=== PATIENT | female | born 1985 | race Caucasian/White ===

== ENCOUNTER 2019-12-11 17:05 | Emergency (ER) | payer OTHER, SELFPAY ==
--- NOTE | ~2019-12-11 | CT_ITS ---
EXAMINATION: CT abdomen pelvis w con INDICATION: Right flank pain TECHNIQUE: Computed tomographic images of the abdomen and pelvis were obtained after the administrati on of 100 cc of Omnipaque 350 intravenous contrast. The dose-length product (DLP) was 292.83 mGy-cm. Automated exposure control and iterative reconstruction technique were employed. COMPARISON: None available FINDINGS: The lung bases are clear. The heart size is normal. The liver, spleen, pancreas, gallbladde r, and adrenal glands are normal. The kidneys are normal. No pathologically enlarged abdominal or pel natalie lymph nodes are identified. There is no free intraperitoneal gas or evidence of bowel obstruction . The appendix is normal. A large volume of colonic stool is present. IMPRESSION: 1. No CT correlate for the patient's symptoms. Reviewed, dictated and finalized at location A.
[2019-12-11 18:04] VITALS: BP 149/104; PULSE 92; RESP 16; TEMP 37.1; O2SAT 97
[2019-12-11 18:33] LABS: Add Urine Microscopic? YES; Appearance Urine Clear (Clear); Bilirubin Urine Negative (Negative); Blood Urine Negative (Negative); Color Urine Yellow (Yellow); Glucose Urine UA Negative (Negative); Ketones Urine Negative (Negative); Leukocyte Esterase Ur Trace LEU/UL (Negative); Nitrate Urine Negative (Negative); Protein Urine Negative (Negative); Urobilinogen Urine 0.2 mg/dL (0.2-1.0); pH Urine 7.5 (5.0-8.0)
[2019-12-11 18:50] LABS: Amorphous Sediment Urine Few; Bacteria Urine 1+ /hpf; Mucus Urine Few /lpf; RBC Urine 0-2 /hpf (0-2); Squamous Epithelial Cell Urine Few /hpf (Few)
[2019-12-11 19:13] LABS: Pregnancy On Board Control Positive; Urine Pregnancy Test Negative
--- NOTE | 2019-12-11 19:19 | ED.BACK ---
HPI - Back Pain/Injury General Chief Complaint: Back Pain/Injury Stated Complaint: back/side pain Time Seen by Provider: 12/11/19 19:19 Source: patient Mode of arrival: ambulatory Limitations: no limitations History of Present Illness HPI Narrative: 34-year-old woman comes in today complaining of right flank pain for 1 week. Patient states that her pain is getting worse, worse with palpation, movement. She states that she has had some nausea today but no vomiting, diarrhea, dysuria, hematuria, discharge or lightheadedness. She denies previous similar symptoms. MD elicited complaint: other ( flank pain) Onset (ago): week(s) (1) Timing: intermittent Severity: moderate Quality: sharp Location: right flank Radiation: groin Exacerbating factors: movement and other ( palpation) Relieving factors: none Associated symptoms: abdominal pain Related Data Home Medications Medication Instructions Recorded Confirmed bupropion HCl [Wellbutrin XL] 150 mg PO QAM 12/11/19 12/11/19 Allergies Allergy/AdvReac Type Severity Reaction Status Date / Time No Known Allergies Allergy Verified 12/11/19 20:30 Review of Systems Constitutional: Constitutional: Denies chills and Denies fever(s) ENT: Denies dysphagia, Denies nasal congestion and Denies sore throat Cardiovascular: Cardiovascular: Denies chest pain and Denies radiating jaw, neck or arm pain Respiratory: Respiratory: Denies cough and Denies dyspnea Gastrointestinal: Gastrointestinal: Reports abdominal pain, Denies diarrhea, Reports nausea and Denies vomiting Genitourinary: Genitourinary: Denies hematuria, Denies nocturia, Reports dysuria, Reports flank pain and Denies urinary incontinence Musculoskeletal: Musculoskeletal: Denies arthralgias and Denies joint swelling Integumentary/Breasts: Skin/Breast: Denies pruritus, Denies erythema and Denies rash Neurologic: Denies vertigo, Denies dizziness and Denies syncope Hematologic/Lymphatic: Hematologic/Lymphatic: Denies easy bleeding and Denies easy bruising Allergic/Immunologic: Allergic/Immunologic: Denies lip swelling and Denies wheezing PMFSH Past Medical History Medical History Depression Surgical History Surgical History History of tubal ligation Social History Social History Smoking status: Never smoker Alcohol intake: never Substance use: never Living arrangements: with family Exam Const: General: healthy appearing Orientation/consciousness: patient oriented x3 Limitations: no limitations Other: moderate acute distress. HENMT: Head: normal to inspection General nose exam: Normal nares present Face and sinus: normal facial exam Mouth: Yes moist mucous membranes Throat: posterior oropharynx normal Eyes: Conjunctivae: conjunctivae normal Pupils: Equal, round and reactive pupils present EOM: EOMs intact bilaterally Resp: Effort & Inspection: normal respiratory effort, not labored, no retractions and no use of accessory muscles Auscultation: clear to auscultation bilaterally Cardio: Rate: regular rate Rhythm: regular rhythm Heart sounds: no murmurs GI: Auscultation: normal bowel sounds Other: Right flank is rather tender. She also has tenderness that extends to the right upper quadrant and down to the right lower quadrant. There is no guarding or rigidity. : General: Yes CVA tenderness on the right Skin: General skin exam: normal color, no jaundice and no pallor Rashes: no rashes Neuro: General: patient oriented x3, moves all extremities, no focal motor deficits and CN's II-XI intact bilaterally Speech: normal speech Gait exam (Neuro): Normal gait present Extrem: General: normal to inspection and no clubbing, cyanosis or edema Psych: Appearance: grossly normal and well kempt Mental Status: mental status grossl
[2019-12-11 19:46] LABS: Basophils Absolute Auto 0.05 K/mm3 (0.00-0.10); Basophils Percent Auto 0.6 % (0.0-1.0); Eosinophils Absolute Auto 0.27 K/mm3 (0.02-0.50); Immature Granulocyte Absolute 0.04 K/mm3 (0.00-0.00); Immature Granulocyte Percent A 0.4 % (0.0-0.0); Lymphocytes Absolute Auto 1.93 K/mm3 (1.10-4.50); Lymphocytes Percent Auto 21.5 % (18.0-42.0); Mean Corpuscular HGB Conc 32.4 g/dL (32.0-36.0); Mean Corpuscular Hemoglobin 29.9 pg (27.0-31.0); Mean Corpuscular Volume 92.3 fL (78.0-102.0); Mean Platelet Volume 9.8 fl (9.2-11.8); Monocytes Absolute Auto 0.53 K/mm3 (0.10-0.90); Monocytes Percent Auto 5.9 % (2.0-11.0); Neutrophils Absolute Auto 6.2 K/mm3 (1.7-7.2); Neutrophils Percent Auto 68.6 % (50.0-70.0); Platelet Count Result 316 K/mm3 (150-420); Red Blood Count 4.01 M/mm3 (4.20-5.40); Red Cell Distribution Width 13.2 % (11.6-14.4)
[2019-12-11 19:55] LABS: Lipase 108 U/L (73-393)
[2019-12-11 20:04] LABS: Lactic Acid Reflex 0.6 mmol/L (0.4-2.0)
[2019-12-11 20:10] LABS: CRP < 0.2 mg/dL (0.0-0.9)
[2019-12-11 20:29] LABS: Albumin Level 4.3 g/dL (3.4-5.0); Alkaline Phosphatase 64 U/L (46-116); Anion Gap 10 mmol/L (8-16); Aspartate Amino Transferase 17 U/L (15-37); Bilirubin,Total 0.3 mg/dL (0.00-1.00); Blood Urea Nitrogen 16 mg/dL (7-18); Calcium 8.9 mg/dL (8.5-10.1); Carbon Dioxide 24 mmol/L (21-32); Chloride 104 mmol/L (98-108); Estimated CRCL calculation 72 ml/min; Estimated Glomerular Filt Rate > 60; Glucose 86 mg/dL (70-99); Osmolality Calculated 286 mOsm/kg (285-295); Potassium 3.7 mmol/L (3.5-5.1); Sodium 138 mmol/L (136-145); Total Protein 7.3 g/dL (6.4-8.2)
[2019-12-11 20:38] LABS: Alanine Aminotransferase 16 U/L (14-59)
[2019-12-11 20:45] VITALS: BP 143/93; PULSE 78; RESP 16; O2SAT 98
[2019-12-11] MEDS: MORPHINE SULFATE (*CRX) 4 MG/ML INJ IV PUSH (20:50)
[2019-12-11] MEDS: ONDANSETRON INJ 4 MG/2 ML VIAL IV PUSH (20:51)
[2019-12-11 22:06] VITALS: BP 138/74; PULSE 68; RESP 16; O2SAT 98
--- NOTE | 2019-12-11 22:06 | PC.NURSE ---
ERP ordered Levaquin 750 mg PO, per medication machine only Levaquin 500 mg PO available, patient was given Levaquin 500 mg PO x1. ERP aware
== END 2019-12-11 22:07 | disposition home or self-care (01) ==
PROVIDERS: Emergency Provider Emergency Medicine
DX: R10.9 Unspecified abdominal pain (principal)
CPT/HCPCS: 36415; 74177; 80053; 81001; 81025; 83605; 83690; 85025; 86140; 87040; 87077; 87086; 87088; 96374; 96375; 99284; A9270; J2270; J2405; Q9965

== ENCOUNTER 2022-02-08 09:48 | Emergency (ER) | payer OTHER, SELFPAY ==
[2022-02-08] VITALS (11 sets, daily range): BP systolic 133–148; BP diastolic 80–95; PULSE 94–108; RESP 15–24; TEMP 36.8; O2SAT 98–100
--- NOTE | ~2022-02-08 | CT_ITS ---
EXAMINATION: CTA chest PE protocol DATE: 02/08/2022 11:09 ORGANIC PREPARATION TECHNICIAN INDICATION: Hemoptysis. Shortness of breath and cough. TECHNIQUE: Computed tomographic angiography (CTA) of the chest was performed with 100 mL Omnipaque-35 0 intravenous contrast. The dose-length product was 221.44 mGy-cm. Maximum intensity projection 3D-re constructions of the aorta and other arteries were constructed by the technologist on a separate work station. Automated exposure control and iterative reconstruction technique were employed. COMPARISON: None. FINDINGS: The study is technically adequate without evidence for pulmonary embolism. Heart size lashell l. No significant pleural or pericardial effusion. No thoracic lymphadenopathy. The upper abdomen is unremarkable. No focal airspace consolidation. There is a calcified granuloma of the left upper lobe. No endobronchial lesions. No pneumothorax. No suspicious pulmonary nodules or masses. No acute osseo us abnormality. No focal lytic or blastic lesions. IMPRESSION: 1. No acute cardiopulmonary disease. No evidence for pulmonary embolism. Reviewed, dictated and finalized at location B. NIC PREPARATION TECHNICIAN
--- NOTE | 2022-02-08 09:56 | ECG_ITS ---
Measurements Intervals [place] Rate: 92 P: 62 NC: 134 QRS: 53 QRSD: 92 T: 59 QT: 345 QTc: 427 Interpretive Statements SINUS RHYTHM NONSPECIFIC T-WAVE ABNORMALITY- ANTERIOR LEADS BASELINE ARTIFACT- I, II, III, AVR, AVL, AVF, V4 BORDERLINE ECG NO PREVIOUS ECG AVAILABLE FOR COMPARISON Electronically Signed On 02-08-2022 14:15:25 HOME MISSION WORKER by Fabricio Flores D.O.
--- NOTE | 2022-02-08 09:57 | ED.SOB ---
HPI - SOB/Dyspnea General Chief Complaint: Upper Respiratory Infection Stated Complaint: Coughing up blood Time Seen by Provider: 02/08/22 09:55 History of Present Illness HPI Narrative: Pt presents after episode of coughing up blood and mucous with some clots. Pt has has history of asthma and had covid awhile back (tested negative at work today) and has been somewhat SOB since. Pt denies leg pain or fever. Pt denies CP. 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 Related Data Home Medications Medication Instructions Recorded Confirmed albuterol sulfate 90 mcg/actuation 2 puff inhalation PRN PRN Wheezing 02/08/22 02/08/22 aerosol inhaler fluticasone 250 mcg-salmeterol 50 2 inh inhalation PRN PRN Cough 02/08/22 02/08/22 mcg/dose blistr powdr for inhalation (Wixela Inhub) hydroxyzine pamoate 25 mg capsule 25 mg PO TID 02/08/22 02/08/22 lamotrigine 200 mg tablet 250 mg PO DAILY 02/08/22 02/08/22 lisdexamfetamine 50 mg capsule 50 mg PO DAILY 02/08/22 02/08/22 (Vyvanse) Allergies Allergy/AdvReac Type Severity Reaction Status Date / Time No Known Allergies Allergy Verified 02/08/22 10:10 Review of Systems Review of Systems: All systems reviewed & are unremarkable except as noted in HPI and below PMFSH Past Medical History Medical History (Updated 02/08/22 @ 11:25 by Alana Caraballo III, DO) Depression Surgical History Surgical History History of tubal ligation Social History Social History Smoking status: Never smoker Alcohol intake: never Substance use: never Exam Const: General: healthy appearing Nutritional Appearance: well nourished Orientation/consciousness: patient oriented x3 Limitations: no limitations Eyes: EOM: EOMs intact bilaterally Chest: Chest palpation & inspection: normal inspection of the chest Resp: Effort & Inspection: normal respiratory effort Auscultation: clear to auscultation bilaterally Cardio: Rate: regular rate Rhythm: regular rhythm GI: GI Palp: Yes Soft to palpation Auscultation: normal bowel sounds Skin: General skin exam: normal color Rashes: no rashes Neuro: General: patient oriented x3 Speech: normal speech Extrem: General: normal to inspection, no clubbing, cyanosis or edema and no pedal edema Psych: Mental Status: mental status grossly normal Affect: normal affect Attitude: cooperative Course Vital Signs Vital signs: Vital Signs Oxygen Delivery Room Air 02/08/22 09:51 Temperature 98.3 F 02/08/22 11:30 Pulse Rate 96 02/08/22 11:20 Respiratory Rate 18 02/08/22 11:30 Blood Pressure 136/80 02/08/22 11:20 Pulse Oximetry 98 02/08/22 11:30 Oxygen Delivery Room Air 02/08/22 11:30 MDM - SOB/Dyspnea Lab Data Result diagrams: 02/08/22 10:12 02/08/22 10:12 Labs: Lab Results 02/08/22 02/08/22 02/08/22 Range/Units 10:12 10:12 10:12 WBC 4.1 L (4.8-10.8) K/mm3 RBC 4.05 L (4.20-5.40) M/mm3 Hgb 12.2 (12.0-15.0) g/dL Hct 35.6 (35.0-49.0) % MCV 87.9 (78.0-102.0) fL MCH 30.1 (27.0-31.0) pg MCHC 34.3 (32.0-36.0) g/dL RDW 12.6 (11.6-14.4) % Plt Count 272 (150-420) K/mm3 MPV 9.5 (9.2-11.8) fl Immature Gran % (Auto) 0.2 H (0.0-0.0) % Neut % (Auto) 70.9 H (50.0-70.0) % Lymph % (Auto) 16.5 L (18.0-42.0) % Roberts % (Auto) 9.9 (2.0-11.0) % Eos % (Auto) 1.5 (1.0-6.0) % Baso % (Auto) 1.0 (0.0-1.0) % Lymph # (Auto) 0.67 L (1.10-4.50) K/mm3 Roberts # (Auto) 0.40 (0.10-0.90) K/mm3 Eos # (Auto) 0.06 (0.02-0.50) K/mm3 Baso # (Auto) 0.04 (0.00-0.10) K/mm3 Abs Immat Gran (auto) 0.01 H (0.00-0.00) K/mm3 Absolute Neuts (auto) 2.9 (1.7-7.2) K/mm3 Absolute Nucleated RBC 0.00 (0.00-0.00) K/mm3 Nucleated RBC % 0.0 (0-0.0) % PT 11.2 (9.50-12.10) Seconds INR 1.0 APTT 2
[2022-02-08 10:16] LABS: Basophils Absolute Auto 0.04 K/mm3 (0.00-0.10); Eosinophils Absolute Auto 0.06 K/mm3 (0.02-0.50); Eosinophils Percent Auto 1.5 % (1.0-6.0); Hematocrit 35.6 % (35.0-49.0); Hemoglobin 12.2 g/dL (12.0-15.0); Immature Granulocyte Absolute 0.01 K/mm3 (0.00-0.00); Immature Granulocyte Percent A 0.2 % (0.0-0.0); Lymphocytes Absolute Auto 0.67 K/mm3 (1.10-4.50); Lymphocytes Percent Auto 16.5 % (18.0-42.0); Mean Corpuscular HGB Conc 34.3 g/dL (32.0-36.0); Mean Corpuscular Hemoglobin 30.1 pg (27.0-31.0); Mean Corpuscular Volume 87.9 fL (78.0-102.0); Mean Platelet Volume 9.5 fl (9.2-11.8); Monocytes Percent Auto 9.9 % (2.0-11.0); Neutrophils Absolute Auto 2.9 K/mm3 (1.7-7.2); Neutrophils Percent Auto 70.9 % (50.0-70.0); Platelet Count Result 272 K/mm3 (150-420); Red Blood Count 4.05 M/mm3 (4.20-5.40); Red Cell Distribution Width 12.6 % (11.6-14.4); White Blood Count 4.1 K/mm3 (4.8-10.8)
[2022-02-08 10:31] LABS: D Dimer 0.43 mg/L (0.19-0.50); Partial Thromboplastin Time 29.2 SEC (23.90-30.70); Prothrombin Time 11.2 Seconds (9.50-12.10)
[2022-02-08] MEDS: KETOROLAC 15 MG/ML VIAL (*BKC) IV PUSH (10:33)
--- NOTE | 2022-02-08 10:39 | PC.NURSE ---
PT REQUESTED SOMETHING FOR HER RIB PAIN. MEDICATION ADMINISTERED ORDERED. PT IS AWAITING RESULTS AT THIS TIME. BROTHER AT BEDSIDE. WILL CONTINUE TO MONITOR.
[2022-02-08 10:40] LABS: Albumin Level 4.1 g/dL (3.4-5.0); Alkaline Phosphatase 55 U/L (46-116); Anion Gap 13 mmol/L (8-16); Aspartate Amino Transferase 11 U/L (15-37); Bilirubin,Total 0.4 mg/dL (0.00-1.00); Blood Urea Nitrogen 10 mg/dL (7-18); Calcium 8.8 mg/dL (8.5-10.1); Carbon Dioxide 23 mmol/L (21-32); Chloride 103 mmol/L (98-108); Estimated CRCL calculation 74 ml/min; Estimated Glomerular Filt Rate > 60; Glucose 89 mg/dL (70-99); NT Pro B Type Natriuretic Pept 50 pg/mL (0-125); Osmolality Calculated 286 mOsm/kg (285-295); Potassium 3.2 mmol/L (3.5-5.1); Sodium 139 mmol/L (136-145); Total Protein 7.7 g/dL (6.4-8.2)
[2022-02-08 11:31] LABS: Alanine Aminotransferase 14 U/L (14-59)
== END 2022-02-08 11:30 | disposition home or self-care (01) ==
PROVIDERS: Emergency Provider Emergency Medicine
DX: R04.2 Hemoptysis (principal); J40 Bronchitis, not specified as acute or chronic
CPT/HCPCS: 36415; 71275; 80053; 83880; 85025; 85380; 85610; 85730; 93005; 96374; 99284; J1885; Q9967

== ENCOUNTER 2024-04-19 17:55 | Emergency (ER) | payer OTHER, MEDICAID, SELFPAY ==
--- NOTE | ~2024-04-19 | CT_ITS ---
EXAMINATION: CT abdomen pelvis w con DATE: 04/19/2024 21:19 INDICATION: Right upper quadrant abdominal pain. TECHNIQUE: Computed tomography (CT) of the abdomen and pelvis was performed with 100 mL Omnipaque 350 intravenous contrast. Automated exposure control and iterative reconstruction technique were employe d. The dose-length product was 747.97 mGy-cm. COMPARISON: CT abdomen and pelvis 12/11/2019 FINDINGS: The visualized portions of lung bases demonstrate minimal atelectasis. No pleural effusion. The heart size is normal. No pericardial effusion. The liver, gallbladder, spleen, pancreas, and adr enal glands are normal. There is cortical thinning of the kidneys. There is a 7 mm cyst in right kidn ey. The left periuterine veins and left ovarian vein are prominent, consistent with pelvic venous ins ufficiency. There are no dilated loops of bowel. The appendix is normal. There are no pathologically enlarged lymph nodes. There is no free intraperitoneal fluid. There is mild lumbar spondylosis. IMPRESSION: 1. Pelvic venous insufficiency. Reviewed, dictated and finalized at location A. OFF MILL TENDER
[2024-04-19 17:55] VITALS: BP 132/96; PULSE 85; RESP 16; O2SAT 99
--- OUTSIDE RECORDS SUMMARY | 2024-04-19 17:59 | XMS_ITS | Continuity of Care Document ---
Author Organization [facility] Address [address] [place] [address] Phone Care Team Providers Care Rug Weaver Name Role Phone Unavailable Unavailable Unavailable Advance Directives Directive Yes / No Effective Date File Name No Information Encounters Encounter Description Practice Location Reason(s) For Visit Diagnoses Date Provider Providers Copied on Encounter [facility], [address] [place], [place], [place], [id number], tel:[phone] [facility] No Information No Information Referring Provider: MORENITA BRIGGS, [address] [place] [address] [address], [place], [address]. tel:[phone] Family History Family Member Type Diagnosis Age At Onset No Information Payers Payer name Insurance type Covered alliance party ID Authoriza tion(s) No Information Social History Type Description Quantity Date Captured Comments Sex Female Smoking Status No Information Chief Complaint And Reason For Visit No Information History Of Present Illness Encounter Date Complaint History Of Prese nt Illness No Information Instructions Date Instruction Additional Infor mation No Information Assessments Type Assessment Date No Information
--- OUTSIDE RECORDS SUMMARY | 2024-04-19 17:59 | XMS_ITS | Clinical Summary ---
Author Organization [facility] Address [address] [place] [address]. [place], [place] [id number] [place] [id number] Care Team Providers Care Forge Operator Name Role Phone Jess Moya Primary Care Provider Allergies No known active allergies Medications lisdexamfetami ne (VYVANSE) 50 MG capsule Take 50 mg by mouth every morning. Active ADVAIR DISKUS 250-50 MCG/ACT inhaler INHALE 1 DOSE BY MOUTH TWICE DAILY (AM AND PM) - APPROXIMATELY 12 HOURS APART 2 Active clonazePAM 0.5 MG tablet 2 Active albuterol sulfate HFA 108 (90 Base) MCG/ACT inhaler 2 puffs. 2 Active DULoxetine (CYMBALTA) 20 MG capsule Take 1 capsule (20 mg total) by mouth daily. 3 Active Active Problems No known active problems Family History Medical History Relation Comments COPD Father Arthritis Mother Thyroid Disease Mother Relation Status Comments Father Alive Mother Social History Tobacco Use Types Packs/Day Years Used Date Smoking Tobacco: Former Cigarettes Smokeless Tobacco: Never Tobacco Cessation:Counseling Given: Not Answered Alcohol Use Standard Drinks/Week Comments Never 0 (1 standard drink = 0.6 oz pur e alcohol) Comments No Sex and Gender Information Value Date Recorded Sex Assigned at Not on file Legal Sex Female 2:40 PM CDT Gender Identity Not on file Sexual Orientation Not on file Last Filed Vital Signs Vital Sign Reading Time Taken Comments Blood Pressure 126/76 12/23/2022 7:30 PM CDT Pulse 101 12/23/2022 5:07 PM CDT Temperature 36.3 ??C (97.4 ??F) 12/23/2022 5:07 PM CD T Respiratory Rate 20 12/23/2022 5:07 PM CDT Oxygen Saturation 99% 12/23/2022 7:30 PM CDT Inhaled Oxygen Concentration - - Weight 56.7 kg (125 lb) 12/23/2022 5:07 PM CDT Height 160 cm (5' 3 ) 12/23/2022 5:07 PM CDT Body Mass Index 22.14 12/23/2022 5:07 PM CDT Plan of Treatment Health Maintenance Due Date Last Done Comments Cervical Cancer Screening Pa p Smear (Age 30 to 64) Every 3 Years 1985 Annual Physical 01/26/1988 Hepatitis C 2003 DTaP, Tdap and Td Vaccines ( 1 - Tdap) 01/26/2004 Hepatitis B Vaccines (1 of 3 - 19+ 3-dose series) 01/26/2004 Cervical Cancer Screening Pa p with HPV Testing (Age 30 to 64) Every 5 Years 2015 Cervical Cancer Screening with HPV 2015 COVID-19 Vaccine (2023-2 5 season) 2023 Influenza Adult (#1) 2023 HPV Vaccines Aged Out No longer eligi ble based on patient's age to complete this topic Meningococcal B Vaccine Aged Out No l onger eligible based on patient's age to complete this topic Meningococcal Vaccine Aged Out No isi angel eligible based on patient's age to complete this topic Pneumococcal Vaccine: Pediat rics (0 to 5 Years) and At-Risk Patients (6 to 64 Years) Aged Out No longer eligible b ased on patient's age to complete this topic RSV Immunizations Under 20 Months Aged Out No longer eligible based on patient's age to complete this topic Insurance [employer]ET[employer] Care Teams Forge Operator Relationship Specialty Start Date End Date Jess Moya PA [address] [place] [address] PCP - General PHYSICIAN COMMUNICATION AND OUTREACH MANAGER 09/14/21
--- OUTSIDE RECORDS SUMMARY | 2024-04-19 17:59 | XMS_ITS | Continuity of Care Document ---
Author Organization [facility] Address [address] [place] [address] Phone Care Team Providers Care Municipal Court Judge Name Role Phone LUISA King Angela Unavailable Jasmin vailable Allergies, Adverse Reactions, Alerts Substance Reaction Status Criticality No Known allergies Medications Medication Instructions Dosage Effective Dates (start - stop) Status Comments Claritin 10 mg Tab take 1 tablet (10MG) by oral route every day 10 MG - Active Celexa 20 mg Tab take 1 tablet (20MG) by oral route every day 20 MG - Active ibuprofen 800 mg Tab take 1 tablet (800M G) by oral route 3 times every day with food as needed 800 MG - Active Procedures Procedure Date Comprehensive community support services , per 15 minutes OFFICE/OUTPATIENT VISIT, EST COLLECTION OF VENOUS BLOOD BY VENIPUNCTU RE OFFICE/OUTPATIENT VISIT, EST Disease management program; initial assessment and initiation of the program OFFICE/OUTPATIENT VISIT, [facility] Limit oral eval problem focused 011 Periapical first film Extraction erupted tooth or exposed root Limit oral eval problem focused 011 Periapical first film Periapical ea add Extraction erupted tooth or exposed root Advance Directives Directive Yes / No Effective Date File Name No Information Encounters Encounter Description Practice Location Reason(s) For Visit Diagnoses Date Provider Providers Copied on Encounter [facility], [address], [place], [place], [id number] , tel: [phone] [facility] No Information [address] Laurie. [address], [place], [place], [address], . [phone] [facility], [address], [place], [place], [address] , tel: [phone] [facility] No Information 2 No Information OFFICE/OUTPA TIENT VISIT, EST [facility], [address], [place], [place], [address] , tel: [phone] [facility] Thyroid (chief complaint) Other specified disorders of thyroidGeneral ized anxiety disorderOther specified disorders of thyroidGeneral ized anxiety disorderPostna eva dripSpecial screening for other specified conditions 2 [address] Laurie. [address], [place], [place], [address], . tel:[phone] OFFICE/OUTPA TIENT VISIT, EST [facility], [address], [place], [place], [address] , [place] tel: [phone] [facility] anxiety (chief complaint)hy perthyroidis m (chief complaint) Other specified disorders of thyroidToxic effect of tobaccoGeneral ized anxiety disorderGenera lized anxiety disorder 1 Sch[address] Laurie. [address], [place], [place], [address], [place]. tel:[phone] [facility], [address], [place], [place], [address] , [place] tel: [phone] [facility] educational (chief complaint) Counseling NOS (Hlth, Education, Advice, Instr) 1 Management Case. [address], [place], [place], [address], . tel:[phone] OFFICE/OUTPA TIENT VISIT, NEW [facility], [address], [place], [place], [address] , tel: [phone] [facility] Follow Up-Elevated BP per [facility] (chief complaint) Other specified disorders of thyroidToxic effect of tobaccoOther specified disorders of thyroidElevate d blood pressure reading without diagnosis of hypertension 1 Aurora Sullivan. [address], [place], [place], [address], . tel:[phone] [facility], [address], [place], [place], [address] , tel: [phone] [facility] No Information 1 Carissa John. [address], [place], [place], [address], [place]. tel:[phone] [facility], [address], [place], [place], [address] , tel: [phone] [facility] No Information 1 Carissa John. [address], [place], [place], [address], . tel:[phone] Family History Family Member Type Diagnosis Age At Onset Paternal grandfather Problem (finding) Maternal history of diabetes mellitus Paternal grandfather Problem (finding) stroke Paternal uncle Problem (finding) malignant neoplasm of bone Problem (finding) Family history of Autoi mmune D/Os Paternal grandmother Problem (finding) breast cancer Brother Problem (finding) Panic D/O Paternal grandmother Problem (finding) Anxiety Payers Payer name Insurance type Covered libertarian ID Authoriza tion(s) No Information Social History Type Description Quantity Date Captured Comments Sex Female Smoking Status No Information Chief Complaint And Reason For Visit No Information Reason For Referral Reason For Referral No Information Plan Of Treatment Date Type Action Status Goal BMP fasting. Due on 012 due Goal Urinalysis. Due on 12 due Goal Lipid Panel. Due on 012 due Future Order: Lab Order THYROID PANEL ([id number]), Appointment on: , Collected on: , Sent on: Sent Future Order: Lab Order THYROID PANEL ([id number]), Appointment on: , Sent on: Sent Future Order: Lab Order THYROGLO BULIN ANTIBODIES ([id number]), Appointment on: , Sent on: Sent Future Order: Lab Order CBC (H/H , RBC, INDICES, WBC, PLT) ([id number]), Appointment on: , Collected on: , Sent on: Sent Future Order: Lab Order COMPREHE NSIVE METABOLIC PANEL W/EGFR ([id number]), Appointment on: , Collected on: , Sent on: Sent Future Order: Lab Order HEPATITI S B SURFACE ANTIGEN W/ CONFIRMATION ([id number]), Appointment on: , Collected on: , Sent on: Sent Future Order: Lab Order HEPATITI S C ANTIBODY ([id number]), Appointment on: , Collected on: , Sent on: Sent Future Order: Lab Order HIV AB, HIV 1/2, EIA, WITH REFLEXES ([id number]), Appointment on: , Collected on: , Sent on: Sent Future Order: Lab Order LIPID PA KRISTAN ([id number]), Appointment on: , Collected on: , Sent on: Sent Future Order: Lab Order T4, FREE ([id number]), Appointment on: , Collected on: , Sent on: Sent Future Order: Lab Order TSH, 3RD GENERATION ([id number]), Appointment on: , Collected on: , Sent on: Sent Future Order: Lab Order HCG, QL, URINE ([id number]), Appointment on: , Sent on: Sent History Of Present Illness Encounter Date Complaint History Of Prese nt Illness No Information Functional Status Date Functional Assessmen t No Information Instructions Date Instruction Additional Infor mation No Information Assessments Type Assessment Date No Information Patient Care Teams Name Effective Dates (start - stop) Status Members No Information
[2024-04-19 18:33] VITALS: BP 153/100; PULSE 102; RESP 20; TEMP 36.9; O2SAT 97
--- NOTE | 2024-04-19 18:45 | PC.NURSE ---
ERP aware of pt's high bp. No new orders .
--- NOTE | 2024-04-19 18:47 | ED_ITS ---
HPI - Abdominal Pain General Chief Complaint: Abdominal Pain Stated Complaint: abdominal pain Time Seen by Provider: 04/19/24 18:47 Source: patient Mode of arrival: ambulatory Limitations: no limitations History of Present Illness HPI narrative: Patient is a 39-year-old female with upper epigastric abdominal pain for the past few days. No nausea vomiting or diarrhea. No bleeding. No hematemesis or hematochezia. No melena. MD elicited complaint: abdominal pain Pertinent past history: other ( None) Onset (ago): day(s) (3) Pain Consistency: constant Location: epigastric Severity: moderate Pain scale (0-10): 5 Quality: cramping and sharp Radiation: back Migration to: no migration Exacerbating factors: nothing Relieving factors: nothing Context: confirms other ( patient has increasing epigastric abdominal pain which radiates to the back) Associated symptoms: denies other symptoms Related Data Home Medications ?Medication ?Instructions ?Recorded ?Confirmed ?Last Taken ?Type albuterol sulfate 90 mcg/actuation 2 puff inhalation PRN PRN Wheezing 02/08/22 02/08/22 Unknown History aerosol inhaler fluticasone 250 mcg-salmeterol 50 2 inh inhalation PRN PRN Cough 02/08/22 02/08/22 Unknown History mcg/dose blistr powdr for inhalation (Wixela Inhub) hydroxyzine pamoate 25 mg capsule 25 mg PO TID 02/08/22 02/08/22 Unknown History lamotrigine 200 mg tablet 250 mg PO DAILY 02/08/22 02/08/22 Unknown History lisdexamfetamine 50 mg capsule 50 mg PO DAILY 02/08/22 02/08/22 Unknown History (Vyvanse) Allergies Allergy/AdvReac Type Severity Reaction Status Date / Time No Known Allergies Allergy Verified 02/08/22 10:10 Review of Systems 2 Review of Systems: All systems reviewed & are unremarkable except as noted in HPI and below Constitutional: Constitutional: Reports no additional constitutional complaints Eyes: Eyes: Reports no additional eye complaints ENT: Reports system reviewed and no additional complaints, except as documented Cardiovascular: Cardiovascular: Reports no additional cardiovascular complaints Respiratory: Respiratory: Reports no additional respiratory complaints Gastrointestinal: Gastrointestinal: Reports no additional gastrointestinal complaints Genitourinary: Genitourinary: Reports no additional female genitourinary complaints Musculoskeletal: Musculoskeletal: Reports no additional musculoskeletal complaints Integumentary/Breasts: Skin/Breast: Reports system reviewed and no additional complaints, except as docu Neurologic: Reports system reviewed and no additional complaints, except as documented Psychiatric: Psychiatric: Reports no additional psychiatric complaints Endocrine: Endocrine: Reports no additional endocrine complaints Hematologic/Lymphatic: Hematologic/Lymphatic: Reports no additional hematologic/lymphatic complaints Allergic/Immunologic: Allergic/Immunologic: Reports no additional allergic/immunologic complaints PMFSH Past Medical History Medical History (Updated 04/19/24 @ 22:50 by Bernardino Watson MD) Depression Surgical History Surgical History History of tubal ligation Social History Social History Smoking status: Never smoker Alcohol intake: never Substance use: never Living arrangements: with family Exam 2 Const: General: healthy appearing Nutritional Appearance: well nourished Orientation/consciousness: patient oriented x3 HENMT: Head: normal to inspection Ears: external ears normal F neil/Nose/Sinus: Normal external nose present Eyes: Conjunctivae: conjunctivae normal Pupils: Equal, round and reactive pupils present EOM: EOMs intact bilaterally Neck: Neck: normal visual inspection Chest: Chest palpation & inspection: normal inspection of the chest Resp: Effort & Inspection: normal respiratory effort and not labored A uscultation: clear to auscultation bilaterally and no crackles Cardio: Rate: regular rate Rhythm: regular rhythm Heart sounds: no murmurs GI: Inspection: non-distended GI Palp: Yes Soft to palpation, Yes Tenderness to palpation present (GI) ( epigastrium), No Guarding due to palpation present (GI), No Rigid due to palpation, No Hernia present, No Palpable mass present and No Rebound tenderness present Auscultation: normal bowel sounds : General: Yes bladder normal to palpation Back/Spine/Pelvis: Back: no CVA tenderness Skin: General skin exam: normal color Rashes: no rashes Wounds: no wounds Neuro: General: patient oriented x3 Cranial nerves: Yes Nystagmus not present Speech: normal speech Extrem: General: normal to inspection Psych: Mental Status: mental status grossly normal Affect: normal affect Attitude: cooperative Course Vital Signs Vital signs: Vital Signs Pulse Rate 85 04/19/24 17:55 Respiratory Rate 16 04/19/24 17:55 Blood Pressure 132/96 H 04/19/24 17:55 Pulse Oximetry 99 04/19/24 17:55 Oxygen Delivery Room Air 04/19/24 17:55 Temperature 36.9 C 04/19/24 18:33 Pulse Rate 102 H 04/19/24 18:33 Respiratory Rate 20 04/19/24 18:33 Blood Pressure 153/100 H 04/19/24 18:33 Pulse Oximetry 97 04/19/24 18:33 Oxygen Delivery Room Air 04/19/24 18:33 MDM - Abdominal Pain MDM Narrative Medical decision making narrative: patient is a 39-year-old female with epigastric pain with radiation to the back. She does not drink alcohol. Workup at this time for abdominal pain. Lab Data Attestation: I reviewed the patient's lab results. 04/19/24 20:16 04/19/24 20:16 Labs: Lab Results 04/19/24 Range/Units 20:16 WBC 9.1 (4.8-10.8) K/mm3 RBC 4.22 (4.20-5.40) M/mm3 Hgb 12.3 (12.0-15.0) g/dL Hct 37.4 (35.0-49.0) % MCV 88.6 (78.0-102.0) fL MCH 29.1 (27.0-31.0) pg MCHC 32.9 (32-36) g/dL RDW 13.2 (11.6-14.4) % Plt Count 310 (150-420) K/mm3 MPV 9.8 (9.2-11.8) fl Immature Gran % (Auto) 0.3 H (0.0-0.0) % Neut % (Auto) 61.5 (50.0-70.0) % Lymph % (Auto) 25.2 (18.0-42.0) % [place] % (Auto) 8.5 (2.0-11.0) % Eos % (Auto) 3.6 (1.0-6.0) % Baso % (Auto) 0.9 (0.0-1.0) % Lymph # (Auto) 2.28 (1.10-4.50) K/mm3 [place] # (Auto) 0.77 (0.10-0.90) K/mm3 Eos # (Auto) 0.33 (0.02-0.50) K/mm3 Baso # (Auto) 0.08 (0.00-0.10) K/mm3 Abs Immat Gran (auto) 0.03 H (0.00-0.00) K/mm3 Absolute Neuts (auto) 5.56 (1.70-7.20) K/mm3 Absolute Nucleated RBC 0.00 (0.00-0.00) K/mm3 Nucleated RBC % 0.0 (0-0.0) % PT 10.4 (9.50-12.1) Seconds INR 0.9 APTT 26.5 (23.9-30.70) Sec Sodium 133 L (136-145) mmol/L Potassium 3.6 (3.5-5.1) mmol/L Chloride 98 (98-108) mmol/L Carbon Dioxide 27 (21-32) mmol/L Anion Gap 8 (4-12) mmol/L BUN 13 (7-18) mg/dL Creatinine 0.78 (0.55-1.02) mg/dL Estim Creat Clear Calc 85 ml/min Estimated GFR > 60 (59 - ) Glucose 71 (70-99) mg/dL Calculated Osmolality 274 L (285-295) mOsm/kg Lactic Acid 0.4 (0.4-2.0) mmol/L Calcium 8.8 (8.5-10.1) mg/dL Total Bilirubin 0.4 (0.00-1.00) mg/dL AST 12 L (15-37) U/L ALT 16 (14-59) U/L Alkaline Phosphatase 71 (46-116) U/L Total Protein 7.8 (6.4-8.2) g/dL Albumin 4.0 (3.4-5.0) g/dL Lipase 41 (16-77) U/L Urine Color Yellow (Yellow) Urine Appearance Clear (Clear) Urine pH 6.0 (5.0-8.0) Ur Specific May 1.025 H (1.010-1.020) Urine Protein Negative (Negative) Urine Glucose (UA) Negative (Negative) Urine Ketones Trace H (Negative) Ur Blood (Man) Negative (Negative) Urine Nitrate Negative (Negative) Urine Bilirubin 1+ H (Negative) Urine Urobilinogen 0.2 (0.2-1.0) mg/dL Leukocyte Esterase Rfl Negative (Negative) GWEN/UL Urine RBC 0-2 (0-2) /hpf Urine WBC 0-3 (0-3) /hpf Ur Squamous Epith Cells Few (Few) /hpf Urine Bacteria Trace (None) /hpf Urine Mucus Few H /lpf Urine Test Negative Imaging Data Attestation: I personally reviewed and interpreted this imaging study as follows: Radiologist's impression: ITS Impressions Abdomen/Pelvis CT 04/19/24 21:20 IMPRESSION: 1. Pelvic venous insufficiency. Pelvic venous changes are chronic in nature Discharge Plan Discharge Clinical Impression: Peptic ulcer of stomach Qualifiers: Gastric ulcer chronicity: acute Qualified Code(s): K25.3 - Acute gastric ulcer without hemorrhage or perforation Patient Disposition: Home, Self-Care Condition: Stable Instructions: Peptic Ulcer (ED) Additional Instructions: please follow-up with the primary doctor in the next week. I suggested GI consultation with a computer project manager to get an upper endoscopy done. Patient Language: Romanian Prescriptions: New pantoprazole [Protonix] 40 mg tablet,delayed release (DR/EC) 40 mg PO DAILY 30 Days Qty: 30 0RF sucralfate [Carafate] 1 gram tablet 1 g PO TID PRN (Reason: pain) Qty: 20 0RF No Action ondansetron 4 mg tablet,disintegrating 4 mg PO Q6H Qty: 10 0RF fluticasone propion-salmeterol [Wixela Inhub] 250-50 mcg/dose blister with device 2 inh INHALATION PRN PRN (Reason: Cough) lamotrigine 200 mg tablet 250 mg PO DAILY albuterol sulfate 90 mcg/actuation HFA aerosol inhaler 2 puff INHALATION PRN PRN (Reason: Wheezing) hydroxyzine pamoate 25 mg capsule 25 mg PO TID Vyvanse 50 mg capsule 50 mg PO DAILY azithromycin [Zithromax Z-Nicholas] 250 mg tablet See Rx Instructions .ROUTE .COMPLEX Qty: 6 0RF Rx Instructions: For 250 mg dose pack: take 500 mg today (day 1), then 250 mg for 4 days (days 2-5) prednisone 50 mg tablet 50 mg PO DAILY Qty: 5 0RF Follow-up/Referrals: UNKNOWN,DOCTOR [Non-Staff] - Time of Disposition: 22:52
--- OUTSIDE RECORDS SUMMARY | 2024-04-19 19:32 | XMS_ITS | Continuity of Care Document ---
Author Organization [facility] Address [address] [place] [address] Phone Care Team Providers Care Guest Relations Representative Name Role Phone LUISA King Angela Unavailable [...] and initiation of the program OFFICE/OUTPATIENT VISIT, [facility] Limit oral eval problem focused 011 Periapical first film Extraction erupted tooth or exposed root Limit oral eval problem focused 011 Periapical first film Periapical ea add Extraction erupted tooth or exposed root Advance Directives Directive Yes / No Effective Date File Name No Information Encounters Encounter Description Practice Location Reason(s) For Visit Diagnoses Date Provider Providers Copied on Encounter [facility], [address], [place], [place], [address] , tel: [phone] [facility] No Information 2 Schiefelbein Laurie. [address], [place], [place], [address], . [phone] [facility], [address], [place], [place], [address] , tel: [phone] [facility] No Information 2 No Information OFFICE/OUTPA TIENT VISIT, EST [facility], [address], [place], [place], [address] , tel: [phone] [facility] Thyroid (chief complaint) Other specified disorders of thyroidGeneral ized anxiety disorderOther specified disorders of thyroidGeneral ized anxiety disorderPostna eva dripSpecial screening for other specified conditions 2 Schiefelbe[address] Laurie. [address], [place], [place], [address], . tel:[phone] OFFICE/OUTPA TIENT VISIT, EST [facility], [address], [place], [place], [address] , [place] tel: [phone] [facility] anxiety (chief complaint)hy perthyroidis m (chief complaint) Other specified disorders of thyroidToxic effect of tobaccoGeneral ized anxiety disorderGenera lized anxiety disorder 1 Schiefelbein Laurie. [address], [place], [place], [address], [place]. tel:[phone] [facility], [address], [place], [place], [address] , [place] tel: [phone] [facility] educational (chief complaint) Counseling NOS (Hlth, Education, Advice, Instr) 1 [facility]. [address], [place], [place], [address], . tel:[phone] OFFICE/OUTPA TIENT VISIT, NEW [facility], [address], [place], [place], [address] , tel: [phone] [facility] Follow Up-Elevated BP per [facility] (chief complaint) Other specified disorders of thyroidToxic effect of tobaccoOther specified disorders of thyroidElevate d blood pressure reading without diagnosis of hypertension 1 Aurora Sullivan. [address], [place], [place], [address], . tel:[phone] [facility], [address], [place], [place], [address] , tel: [phone] [facility] No Information 1 Carissa John. [address], [place], [place], [address], [place]. tel:[phone] [facility], [address], [place], [place], [address] , tel: [phone] [facility] No Information 1 Carissa John. [address], [place], [place], [address], . tel:[phone] Family History Family Member Type Diagnosis Age At Onset Paternal grandfather Problem (finding) Maternal history of diabetes mellitus Paternal grandfather Problem (finding) stroke Paternal uncle Problem (finding) malignant neoplasm of bone Problem (finding) Family history of Autoi mmune D/Os Paternal grandmother Problem (finding) breast cancer Brother Problem (finding) Panic D/O Paternal grandmother Problem (finding) Anxiety Payers Payer name Insurance type Covered republican ID Authoriza tion(s) No Information Social History Type Description Quantity Date Captured Comments Sex Female Smoking Status No Information Chief Complaint And Reason For Visit No Information Reason For Referral Reason For Referral No Information Plan Of Treatment Date Type Action Status Goal Lipid Panel. Due on 012 due Goal Urinalysis. Due on 12 due Goal BMP fasting. Due on 012 due Future Order: Lab [...] Lab Order COMPREHE NSIVE METABOLIC PANEL W/EGFR ([id number]), Appointment on: , Collected on: , Sent on: Sent Future Order: Lab Order HEPATITI S B SURFACE ANTIGEN W/ CONFIRMATION ([id number]), Appointment on: , Collected on: , Sent on: Sent Future Order: Lab Order HEPATITI S C ANTIBODY ([id number]), Appointment on: , Collected on: , Sent on: Sent Future Order: Lab Order HIV AB, HIV 1/2, EIA, WITH REFLEXES ([id number]), Appointment on: , Collected on: , Sent on: Sent Future Order: Lab Order LIPID PA KRISTAN ([id number]), Appointment on: , Collected on: , Sent [...]
--- OUTSIDE RECORDS SUMMARY | 2024-04-19 19:32 | XMS_ITS | Continuity of Care Document ---
Author Organization [facility] Address [address] [place] [address] Phone Care Team Providers Care [employer] Name Role Phone Unavailable Unavailable Unavailable Advance Directives Directive Yes / No Effective Date File Name No Information Encounters Encounter Description Practice Location Reason(s) For Visit Diagnoses Date Provider Providers Copied on Encounter [facility], [address] [facility], [place], [place], [address], tel:[phone] [facility] No Information No Information Referring Provider: MORENITA BRIGGS, [address] [place] [address], [place], [address]. tel:[phone] Family History Family Member Type Diagnosis Age At Onset No Information Payers Payer name Insurance type Covered green party ID Authoriza tion(s) No Information Social History Type Description Quantity Date Captured Comments Sex Female Smoking Status No Information Chief Complaint And Reason For Visit No Information History Of Present Illness Encounter Date Complaint History Of Prese nt Illness No Information Instructions Date Instruction Additional Infor mation No Information Assessments Type Assessment Date No Information
--- OUTSIDE RECORDS SUMMARY | 2024-04-19 19:32 | XMS_ITS | Clinical Summary ---
Author Organization [facility] Address [address] [place] [address]. 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
[2024-04-19 20:21] LABS: Add Urine Microscopic? YES; Appearance Urine Clear (Clear); Basophils Absolute Auto 0.08 K/mm3 (0.00-0.10); Basophils Percent Auto 0.9 % (0.0-1.0); Bilirubin Urine 1+ (Negative); Blood Urine Negative (Negative); Color Urine Yellow (Yellow); Eosinophils Absolute Auto 0.33 K/mm3 (0.02-0.50); Eosinophils Percent Auto 3.6 % (1.0-6.0); Glucose Urine UA Negative (Negative); Hematocrit 37.4 % (35.0-49.0); Hemoglobin 12.3 g/dL (12.0-15.0); Immature Granulocyte Absolute 0.03 K/mm3 (0.00-0.00); Immature Granulocyte Percent A 0.3 % (0.0-0.0); Ketones Urine Trace (Negative); Leukocyte Esterase Ur Negative LEU/UL (Negative); Lymphocytes Absolute Auto 2.28 K/mm3 (1.10-4.50); Lymphocytes Percent Auto 25.2 % (18.0-42.0); Mean Corpuscular HGB Conc 32.9 g/dL (32-36); Mean Corpuscular Hemoglobin 29.1 pg (27.0-31.0); Mean Corpuscular Volume 88.6 fL (78.0-102.0); Mean Platelet Volume 9.8 fl (9.2-11.8); Monocytes Absolute Auto 0.77 K/mm3 (0.10-0.90); Monocytes Percent Auto 8.5 % (2.0-11.0); Neutrophils Absolute Auto 5.56 K/mm3 (1.70-7.20); Neutrophils Percent Auto 61.5 % (50.0-70.0); Nitrate Urine Negative (Negative); Platelet Count Result 310 K/mm3 (150-420); Protein Urine Negative (Negative); Red Blood Count 4.22 M/mm3 (4.20-5.40); Red Cell Distribution Width 13.2 % (11.6-14.4); Specific Grav Ur 1.025 (1.010-1.020); Urobilinogen Urine 0.2 mg/dL (0.2-1.0); White Blood Count 9.1 K/mm3 (4.8-10.8)
[2024-04-19 20:28] LABS: RBC Urine 0-2 /hpf (0-2)
[2024-04-19 20:29] LABS: Bacteria Urine Trace /hpf; Mucus Urine Few /lpf; Pregnancy On Board Control Positive; Squamous Epithelial Cell Urine Few /hpf (Few); Urine Pregnancy Test Negative; WBC Urine 0-3 /hpf (0-3)
[2024-04-19 20:34] LABS: INR 0.9; Partial Thromboplastin Time 26.5 Sec (23.9-30.70); Prothrombin Time 10.4 Seconds (9.50-12.1)
[2024-04-19 20:38] LABS: Lactic Acid Reflex 0.4 mmol/L (0.4-2.0)
[2024-04-19 20:42] LABS: Alanine Aminotransferase 16 U/L (14-59); Alkaline Phosphatase 71 U/L (46-116); Anion Gap 8 mmol/L (4-12); Aspartate Amino Transferase 12 U/L (15-37); Bilirubin,Total 0.4 mg/dL (0.00-1.00); Blood Urea Nitrogen 13 mg/dL (7-18); Calcium 8.8 mg/dL (8.5-10.1); Carbon Dioxide 27 mmol/L (21-32); Chloride 98 mmol/L (98-108); Estimated CRCL calculation 85 ml/min; Estimated Glomerular Filt Rate > 60; Glucose 71 mg/dL (70-99); Osmolality Calculated 274 mOsm/kg (285-295); Potassium 3.6 mmol/L (3.5-5.1); Sodium 133 mmol/L (136-145); Total Protein 7.8 g/dL (6.4-8.2)
[2024-04-19 20:54] LABS: Lipase 41 U/L (16-77)
[2024-04-19] MEDS: PANTOPRAZOLE SODIUM IV 40 MG VIAL 80 MG IV PUSH (22:56)
[2024-04-19] MEDS: MAG HYDROX/ALUMINUM HYD/SIMETH 30 ML, PHENobarb/HYOSCY/ATROPINE/SCOP 32.4 MG, LIDOCAINE... PO (22:57)
[2024-04-19 23:28] VITALS: BP 127/84; PULSE 83; RESP 18; O2SAT 99
== END 2024-04-19 23:28 | disposition home or self-care (01) ==
PROVIDERS: Emergency Provider Emergency Medicine
DX: K25.3 Acute gastric ulcer without hemorrhage or perforation (principal)
CPT/HCPCS: 36415; 74177; 80053; 81001; 81025; 83605; 83690; 85025; 85610; 85730; 96374; 96375; 99284; A9270; J2470; Q9967